=== PATIENT | female | born 1960 | race Caucasian/White ===

== ENCOUNTER 2020-10-26 07:12 | Day surgery (SDC) | payer BC ==
[~2020-10-26] VITALS: Ht 162.6 cm; Wt 86.4 kg
[2020-10-26 07:19] VITALS: BP 138/71
[2020-10-26] MEDS ORDERED: SERT100T PO (07:29)
[2020-10-26] MEDS ORDERED: BUPR150T8 PO (07:30)
[2020-10-26] MEDS ORDERED: CYAN500T71 PO (07:31)
[2020-10-26] MEDS ORDERED: fentaNYL/PF 50MCG/1 ML 2ML syringe ONE (07:38)
[2020-10-26] MEDS ORDERED: LIDOcaine Viscous 15ml cup ONE (07:38)
[2020-10-26] MEDS ORDERED: MIDAZolam 1 MG/ML 5ML VIAL ONE (07:38)
[2020-10-26 09:08] VITALS: BP 136/88
[2020-10-26 09:18] VITALS: BP 133/73
[2020-10-26 09:28] VITALS: BP 134/77
[2020-10-26 09:38] VITALS: BP 126/85
== END 2020-10-26 09:45 | disposition home or self-care (01) ==
LOC: GI LAB 07:12
PROVIDERS: ATTEND Specialist
DX: R10.30 Lower abdominal pain, unspecified (principal); R10.13 Epigastric pain; R13.19 Other dysphagia; R07.89 Other chest pain; K57.30 Diverticulosis of large intestine without perforation or abscess without bleeding; K63.89 Other specified diseases of intestine; K56.699 Other intestinal obstruction unspecified as to partial versus complete obstruction; K44.9 Diaphragmatic hernia without obstruction or gangrene; Z88.5 Allergy status to narcotic agent; Z88.8 Allergy status to other drugs, medicaments and biological substances; Z79.899 Other long term (current) drug therapy
CPT/HCPCS: 43235; 45380; 99152; 99153; J2250; J3010; J7040; A4620